=== PATIENT | female | born 2000 | race Caucasian/White ===

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

== ENCOUNTER 2020-06-24 19:33 | Emergency (ER) | payer OTHER ==
[2020-06-24] MEDS ORDERED: SULFA/TRIMETH 800/160 (DS) TAB 1 EA TAB PO ONE (20:28)
[2020-06-24] MEDS ORDERED: CLINDAMYCIN HCL CAP 150 MG CAP PO ONE (20:28)
[2020-06-24] MEDS ORDERED: TETANUS,DIPHTHERIA,PERTUSSIS 1 EA SYG IM ONE (20:28)
--- NOTE | 2020-06-24 20:33 | ED.PDOC ---
History of Present Illness - General Chief Complaint: Skin/Abrasion/Tear Stated Complaint: right foot blister Time Seen by Provider: 06/24/20 20:23 Additional Information: PATIENT WITH RECURRENT LARGE FOOT BLISTERS THAT COVER THE SOLE OF HER FEET AND BETWEEN HER TOES. IT SEEMS TO OCCUR PRIMARILY WHEN SHE WORKS AND HER FEET GET WET FROM SWEAT. SHE HAS HAD THIS SINCE SHE WAS A CHILD. TODAY SHE HAS DEVELOPED INCREASED PAIN IN HER RIGHT HEAL, LOCALIZED SWELLING AND ERYTHEMA. - History of Present Illness Timing/Duration: just prior to arrival, this morning Severity: severe Location: none Improving Factors: nothing Worsening Factors: nothing Associated Symptoms: denies symptoms Allergies/Adverse Reactions: Allergies NO KNOWN ALLERGY Allergy (Verified 06/24/20 19:56) Home Medications: Ambulatory Orders Clindamycin HCl [Cleocin] 450 mg PO TID 7 Days #63 cap 06/24/20 Sulfa/Trimeth 800/160 (Ds) Tab [Bactrim DS] 1 tablet PO BID #20 tab 06/24/20 Review of Systems - Review of Systems Constitutional: States: no symptoms reported EENTM: States: no symptoms reported Respiratory: States: no symptoms reported Cardiology: States: no symptoms reported Gastrointestinal/Abdominal: States: no symptoms reported Genitourinary: States: no symptoms reported Past Medical History (General) - Patient Medical History Hx Seizures: No Hx Stroke: No Hx Dementia: No Hx Asthma: No Hx of COPD: No Hx Cardiac Disorders: No Hx Congestive Heart Failure: No Hx Pacemaker: No Hx Hypertension: No Hx Thyroid Disease: No Hx Diabetes: No Hx Gastroesophageal Reflux: No Hx Renal Disease: No Hx Cancer: No Hx of HIV: No Hx Hepatitis C: No Hx MRSA: No Surgical History: no surgical history - Vaccination History Hx Tetanus, Diphtheria Vaccination: No Hx Influenza Vaccination: No - Social History Hx Tobacco Use: No Hx Alcohol Use: No Hx Substance Use: No Hx Substance Use Treatment: No Hx Depression: No Hx Physical Abuse: No Hx Emotional Abuse: No Hx Suspected Abuse: No - Female History Hx Last Menstrual Period: 04/01/17 Patient : No Family Medical History - Family History Mother Family History: Unknown Physical Exam - Physical Exam General Appearance: Agitated, Alert, Comfortable Eyes, Ears, Nose, Throat Exam: PERRL/EOMI Neck: non-tender, full range of motion, supple Cardiovascular/Chest: normal peripheral pulses, regular rate, rhythm, no edema Respiratory: chest non-tender, lungs clear, normal breath sounds, no respiratory distress Gastrointestinal/Abdominal: normal bowel sounds, non tender, soft Skin Exam: other - BLISTERS COVERING THE SOLES OF BOTH FEEL, PARTIALLY DENUDED. THE RIGHT HEAL HAS OBVIOUS SECONDARY CELLULITIS. THE FEET SMELL OF PSEUDOMONUS. Procedures - Incision and Drainage #1 Procedure Comments: AFTER SCRUBBING THE RIGHT HEAL WITH HIBICLEANS, A LARGE DEEP BLISTER WAS DENUDED TO ALLOW DRAINAGE OF PURULENT EXUDATE, A 1.5 X 1.5 CM ROOF OF THE BLISTER WAS EXCISED AND EXUDATE WAS ALLOWED TO DRAIN Departure - Departure Clinical Impression: Dyshidrotic foot dermatitis, Cellulitis Trench foot Qualifiers: Encounter type: initial encounter Laterality: unspecified laterality Qualified Code(s): T69.029A - Immersion foot, unspecified foot, initial encounter Time of Disposition: 21:19 Disposition: Discharge to Home or Self Care Condition: Good Departure Forms: ED Discharge - Pt. Copy, Patient Portal Self Enrollment Instructions: DI for Abrasion, Cellulitis (Skin Infection), Adult (DC) Prescriptions: Sulfa/Trimeth 800/160 (Ds) Tab [Bactrim DS] 1 tablet PO BID #20 tab Clindamycin HCl [Cleocin] 450 mg PO TID 7 Days #63 cap Home Medications: Ambulatory Orders Clindamycin HCl [Cleocin] 450 mg PO TID 7 Days #63 cap 06/24/20 Sulfa/Trimeth 800/160 (Ds) Tab [Bactrim DS] 1 tablet PO BID #20 tab 06/24/20 Additional Instructions: IT IS VERY IMPORTANT THAT YOU TAKE BETTER CARE OF YOUR FEET. YOU NEED TO HAVE PROPER FITTING SHOES, YOU NEED TO MAKE SURE YOUR FEET STAY DRY. CHANGE YOUR SOCKS OFTEN AT WORK. NEVER ALLOW YOUR FEET TO STAY WET FROM SWEAT OR ANYTHING ELSE. WASH YOUR FEET AND DRY THEM TWICE DAILY. DO NOT WEAR YOUR SOCKS TO BED. ALLOW YOUR FEET SKIN TO DRY OUT AT NIGHT. IT IF IMPORTANT THAT YOU GET INTO SEE A PHARMACY MESSENGER TO CONFIRM YOUR DIAGNOSIS AND MAKE SURE THERE IS NOTHING ELSE CAUSING YOUR FOOT PROBLEMS. THE INFECTION IS A SECONDARY PROBLEM AND MUST BE CLEARED UP BEFORE YOU RETURN TO WORK. RETURN IF THE INFECTION IS SPREADING OR FEVER IS WORSENING.
[2020-06-24] MEDS ORDERED: CHLORHEXIDINE GLUCONATE 4 % 15 ML UD TOP ONE (20:40)
[2020-06-24 22:49] VITALS: BP 135/72; TEMP 99.6; O2SAT 99
== END 2020-06-24 21:30 | disposition home or self-care (01) ==
LOC: ER 19:33
DX: L03.115 Cellulitis of right lower limb (principal); T69.022A Immersion foot, left foot, initial encounter; T69.021A Immersion foot, right foot, initial encounter; L30.1 Dyshidrosis [pompholyx]; S90.821A Blister (nonthermal), right foot, initial encounter; Z23 Encounter for immunization; X58.XXXA Exposure to other specified factors, initial encounter; Y92.9 Unspecified place or not applicable